=== PATIENT | male | born 1960 | race Caucasian/White ===

== ENCOUNTER → 2023-07-09 15:30 | Outpatient (REF) | payer MEDICARE, SELFPAY | LOC: HWRAD 15:30 | PROVIDERS: ATTENDING PHYSICIAN Otolaryngology Facial Plastic Surgery; FAMILY PHYSICIAN Family Medicine | DX: J32.0 Chronic maxillary sinusitis (principal) | CPT/HCPCS: 70486 ==

== ENCOUNTER → 2024-08-19 10:07 | Outpatient (REF) | payer MEDICARE, SELFPAY | LOC: HWRAD 10:07 | PROVIDERS: ATTENDING PHYSICIAN Family Medicine | DX: M54.50 Low back pain, unspecified (principal) | CPT/HCPCS: 72110 ==